=== PATIENT | male | born 1975 | race Caucasian/White ===

== ENCOUNTER 2018-04-04 15:51 | Emergency (ER) | payer OTHER ==
--- NOTE | 2018-04-04 16:13 | ED Physician Documentation ---
PD HPI WOUND RECHECK - Stated complaint Stated Complaint: MALE - Chief complaint Chief Complaint: Wound - Histroy obtained from History obtained from: Patient - History of Present Illness Location: Other (scrotum) Timing - onset: Today Pain level max: 0 Pain level now: 0 Associated symptoms: No: Fever, Redness, Swelling, Drainage, Pain Recently seen: Surgery - Additional information Additional information: Patient is approximately 6 days status post a vasectomy and hydrocele repair at [facility] with Dr. Lamb (urology). Today he noticed that a stitch had fallen out and he has a slight wound dehiscence. Came here for evaluation. Has not contacted urology yet. No fevers. No redness. No swelling. No drainage. Review of Systems Constitutional: denies: Fever, Chills GI: denies: Vomiting : denies: Dysuria, Frequency, Hesitancy PD PAST MEDICAL HISTORY - Past Medical History Past Medical History: No - Past Surgical History Past Surgical History: Yes Other past surgical history: vasectomy, hydrocele repair - Present Medications Home Medications: Ambulatory Orders Medication Instructions Recorded Confirmed Hydrocodone/Acetaminophen 04/04/18 [Hydrocodone-Acetamin 5-325 mg] - Allergies Allergies/Adverse Reactions: Allergies Allergy/AdvReac Type Severity Reaction Status Date / Time No Known Drug Allergies Allergy Verified 04/04/18 16:01 - Living Situation Living Arrangement: reports: At home - Social History Does the pt have substance abuse?: No - Family History Family history: reports: Non contributory PD ED PE NORMAL - Vitals Vital signs reviewed: Yes - General General: Alert and oriented X 3, No acute distress - HEENT HEENT: Moist mucous membranes - Abdomen Abdomen: Soft, Non tender, Non distended - Male Male : Other (0.5cm dehisced area to inferior portion of the incision. No drainage. no signs of infection. ) - Derm Derm: Warm and dry - Neuro Neuro: Alert and oriented X 3 - Psych Psych: Normal mood, Normal affect Results - Vitals Vitals: Vital Signs - 24 hr 04/04/18 15:55 Temperature 36.3 C L Heart Rate 66 Respiratory 16 Rate Blood Pressure 168/107 H O2 Saturation 97 Oxygen O2 Source Room air PD MEDICAL DECISION MAKING - ED course Complexity details: considered differential, d/w patient ED course: Attempted to contact urology [employer] [place] tour guide, but no age returned. Therefore we placed Dermabond at the inferior aspect of the wound. Patient tolerated well. He has a follow-up appointment scheduled for April 13 and will have him keep this. Warnings of infection and instructions on wound care given at bedside. Also counseled on how to minimize scarring. Patient counseled regarding signs and symptoms for which I believe and urgent re-evaluation would be necessary. Patient with good understanding of and agreement to plan and is comfortable going home at this time This document was made in part using voice recognition software. While efforts are made to proofread this document, sound alike and grammatical errors may occur. Departure - Departure Disposition: Home, Self Care Clinical Impression: Wound dehiscence, surgical Qualifiers: Encounter type: initial encounter Qualified Code(s): T81.31XA - Disruption of external operation (surgical) wound, not elsewhere classified, initial encounter Condition: Good Instructions: ED Wound Care Follow-Up: Shannon Lamb MD [Physician No Access] - (as scheduled.) Comments: Return if you worsen. Follow up with urology as scheduled. Keep the wound clean and dry.
[2018-04-04 16:51] VITALS: BP 131/81
== END 2018-04-04 16:54 | disposition home or self-care (01) ==
LOC: ED 15:51
DX: T81.31XA Disruption of external operation (surgical) wound, not elsewhere classified, initial encounter (principal)
CPT/HCPCS: 99282; 99283